=== PATIENT | female | born 1985 | race Caucasian/White ===

== ENCOUNTER 2017-01-13 09:27 | Outpatient (CLI) | payer OTHER ==
[2017-01-13 18:25] LABS: THYROID STIMULATING HORMONE 2.61 uIU/mL (0.34-5.60)
[2017-01-13 18:27] LABS: FREE T3 3.28 pg/mL (2.5-3.9)
[2017-01-13 18:31] LABS: FERRITIN 17.8 ng/mL (11.0-306.8)
[2017-01-13 18:33] LABS: TOTAL T3 0.98 ng/mL (0.87-1.78)
[2017-01-13 18:54] LABS: FOLLICLE STIMULATING HORMONE 6.46 mIU/mL
[2017-01-14 11:01] LABS: PROGESTERONE 2.6 ng/mL
[2017-01-16 21:46] LABS: TEST RESULT REPORT
== END 2017-01-13 09:28 | disposition home or self-care (01) ==
LOC: LAB.F 09:27
PROVIDERS: ATTEND Family Medicine
DX: N91.2 Amenorrhea, unspecified (principal); Z13.29 Encounter for screening for other suspected endocrine disorder; E61.1 Iron deficiency; R53.83 Other fatigue; D64.9 Anemia, unspecified; E03.9 Hypothyroidism, unspecified
CPT/HCPCS: 36415; 81599; 82626; 82627; 82670; 82672; 82677; 82728; 83001; 84144; 84270; 84403; 84439; 84443; 84479; 84480; 84481; 84482; 84703